=== PATIENT | female | born 1960 | race Caucasian/White ===

== ENCOUNTER 2020-01-23 23:53 | Emergency (ER) | payer OTHER ==
[~2020-01-23] VITALS: Ht 170.2 cm; Wt 72.6 kg
[2020-01-24] MEDS ORDERED: TDAP [DIPH/PERTUSSIS/TET] 0.5 ML VIAL IM ONE ×2 (00:04)
--- NOTE | 2020-01-24 00:14 | NUR ---
PT AAOX1. BIB EMS FROM HOME C/O ALTERED, ETOH PER EMS REPORT. NOTED BILAT ABRASION. PLACED ON MONITOR AND PULSE OX. 1L NS STARTED. WILL CONTINUE TO MONITOR.
[2020-01-24] MEDS ORDERED: HALOPERIDOL LACTATE INJ 5 MG/ML VIAL ONE (00:23)
[2020-01-24] MEDS ORDERED: IV NS 0.9% 1,000 ML IV PRN (00:30)
[2020-01-24] MEDS ORDERED: HALOPERIDOL LACTATE INJ 5 MG/ML VIAL IM ONE (00:30)
--- NOTE | 2020-01-24 01:31 | NUR ---
PT TRANSPORTED TO [facility] FOR CT HEAD.
--- NOTE | 2020-01-24 02:11 | NUR ---
Patient is resting comfortably in bed. Easily aroused. VSS.
--- NOTE | 2020-01-24 02:32 | NUR ---
PT PULLED OUT IV. CATH INTACT. BLEEDING STOPPED, DRESSING APPLIED TO SITE.
--- NOTE | 2020-01-24 03:34 | NUR ---
PT AWAKE, AAOX4. AMBULATORY WITH STEADY GAIT. AWARE
--- NOTE | 2020-01-24 04:09 | NUR ---
Patient discharged to home in stable condition. Written and verbal after care instructions given. Patient verbalizes understanding of instruction.Patient discharged to home in stable condition. Written and verbal after care instructions given. Patient verbalizes understanding of instruction. Addendum: 01/24/20 at 0412 by KHUSHI PT INSTRUCTED NOT TO DRIVE, PT VERBALIZED UNDERSTANDING. PT AGREES TO TAKING [facility] HOME.
[2020-01-24 04:12] VITALS: BP 134/79
== END 2020-01-24 04:14 | disposition home or self-care (01) ==
LOC: EDBD 23:57 → ER 23:57
DX: S80.212A Abrasion, left knee, initial encounter (principal); S80.211A Abrasion, right knee, initial encounter; F10.129 Alcohol abuse with intoxication, unspecified; R51 Headache; Y90.9 Presence of alcohol in blood, level not specified; W18.30XA Fall on same level, unspecified, initial encounter; Y93.89 Activity, other specified; Y92.89 Other specified places as the place of occurrence of the external cause; Y99.8 Other external cause status
CPT/HCPCS: 70450; 73564 ×2; 90471; 90715; 96372; 99284; J1630; J7030